=== PATIENT | male | born 1930 | race Caucasian/White ===

== ENCOUNTER 2018-10-14 15:17 | Emergency (ER) | payer MEDICARE, OTHER ==
[~2018-10-14] VITALS: Ht 172.7 cm; Wt 93.1 kg
--- NOTE | 2018-10-14 15:42 | EKG ---
[address] [address] Test Date: 2018-10-14 Test Time: 15:36:35 Pat Name: PATRICIA CHAPPELL Department: Room: Gender: M Drafting Supervisor: : [id number] Requested By: JOAO VILLALTA Order Number: [id number] Reading MD: Milan Molina Measurements Intervals [place] Rate: 88 P: 0 SC: 200 QRS: -29 QRSD: 98 T: 49 QT: 394 QTc: 480 Interpretive Statements SINUS RHYTHM LEFTWARD AXIS NONSPECIFIC ST-T WAVE CHANGES. Electronically Signed On 10-15-2018 8:49:08 [employer] by Milan Molina
--- NOTE | 2018-10-14 15:45 | PHYS DOC ---
Adult General Chief Complaint Chief Complaint: MECHANICAL FALL HPI HPI 88-year-old male presents via EMS for fall. Patient was placed box of food in his vehicle when he fell over backwards. He states he struck the back of his head on the asphalt. He is not sure if he was knocked unconscious. He doesn't think so. Patient was able to get up. Bystanders called EMS. Patient does have a hematoma on the back of his head and it was bleeding. Patient denies any pain or injuries anywhere else. He knows that he takes a medication twice a day which she thinks is for diabetes and is unsure the name. He also takes of full- strength aspirin. He denies headache, shortness of breath, chest pain, dizziness. EMS thought they might have had afib on the monitor. Review of Systems Review of Systems Constitutional: Denies fever or chills [] Eyes: Denies change in visual acuity, redness, or eye pain [] HENT: Denies nasal congestion or sore throat [] Respiratory: Denies cough or shortness of breath [] Cardiovascular: No additional information not addressed in HPI [] GI: Denies abdominal pain, nausea, vomiting, bloody stools or diarrhea [] : Denies dysuria or hematuria [] Musculoskeletal: Denies back pain or joint pain [] Integument: hematoma and laceration of scalp [] Neurologic: Denies headache, focal weakness or sensory changes [] Endocrine: Denies polyuria or polydipsia [] All other systems were reviewed and found to be within normal limits, except as documented in this note. Allergies Allergies Allergies Coded Allergies Type Severity Reaction Last Updated Verified No Known Drug Allergies 10/14/18 No Physical Exam Physical Exam Constitutional: Well developed, well nourished, no acute distress, non-toxic appearance. [] HENT: Normocephalic, atraumatic, bilateral external ears normal, oropharynx moist, no oral exudates, nose normal. [] Eyes: PERRLA, EOMI, conjunctiva normal, no discharge. [] Neck: Normal range of motion, no tenderness, supple, no stridor. [] Cardiovascular:Heart rate regular rhythm, no murmur [] Lungs & Thorax: Bilateral breath sounds clear to auscultation [] Abdomen: Bowel sounds normal, soft, no tenderness, no masses, no pulsatile masses. [] Skin: 4 cm hematoma on the posterior scalp with complex laceration in a stellate shape.[] Back: No tenderness, no CVA tenderness. [] Extremities: No tenderness, no cyanosis, no clubbing, ROM intact, no edema. [] Neurologic: Alert and oriented X 3, normal motor function, normal sensory function, no focal deficits noted. Some memory impairment.[] Psychologic: Affect normal, judgement normal, mood normal. [] EKG EKG Sinus rhythm, rate 88, left axis, no association elevations or depressions, prolonged QTC.[] Radiology/Procedures Radiology/Procedures [] Impressions: EXAM: CT Head without IV contrast CLINICAL HISTORY: FALL, LARGE LACERATION ON BACK OF HEAD COMPARISON: None TECHNIQUE: Routine CT of the head without contrast. Soft tissues and bone windows were reviewed. PQRS compliance statement - One or more of the following individualized dose reduction techniques were utilized for this study: 1. Automated exposure control 2. Adjustment of the mA and/or kV according to patient size 3. Use of iterative reconstruction technique FINDINGS: Marked subcutaneous soft tissue swelling in the high left posterior parietal region with subcutaneous gas and associated hematoma. There is no evidence of hemorrhage, mass or extra-axial fluid collection. Kraus-white differentiation is maintained with no evidence of edema. There are non-specific foci of hypodensity in the periventricular and subcortical white matter of the cerebral hemispheres. There is no mass effect or shift of the intracranial structures. The ventricles and cerebral sulci are prominent for the patients stated age consistent with generalized cerebral volume loss. The cerebellum and brainstem are unremarkable. The calvarium demonstrates no evidence of fracture or focal lesion. There is normal aeration of the visualized paranasal sinuses and mastoid air cells. The visualized portions of the orbits are normal. IMPRESSION: No evidence for acute intracranial process. Subcutaneous soft tissue swelling, hematoma and focus of gas in the high left parietal region consistent with provided history of scalp laceration. Electronically signed by: Kalia Herrera MD (10/14/2018 4:27 PM) [facility] DICTATED AND SIGNED BY: KALIA HERRERA MD DATE: 10/14/18 2319 CC: JOAO VILLALTA DO; SHEMAR KARIMI MD ~ Course & Med Decision Making Course & Med Decision Making Pertinent Labs and Imaging studies reviewed. (See chart for details) Head CT has no acute intracranial findings. He does have a soft tissue hematoma and subcutaneous air from the laceration. I was able to repair the laceration. See below for more details. The patient is acting completely appropriate. He has no other signs of intracranial complications. He would like to go home. Given the complex laceration and incompletely closure available, I will cover the patient with Keflex for 7 days. He is stable for discharge at this time. He will have his zoran taken out in 7-10 days either this facility or his primary care physician. [] Dragon Disclaimer Dragon Disclaimer This electronic medical record was generated, in whole or in part, using a voice recognition dictation system. Laceration Repair Lac Repair Indication: 8 total centimeter complex laceration of the posterior scalp. The laceration is stellate in appearance. Procedure: Verbal consent was obtained from the patient to repair his complex scalp laceration with zoran. The wound was thoroughly irrigated with saline. There were no foreign bodies found. No anesthesia was used. I was able to close the wound with 9 zoran. There was adequate skin approximation with a Y-shaped wound repair. Total repaired wound length: 8 cm. Other Items: None The patient tolerated the procedure well. Complications: None. Departure Departure: Scripts Cephalexin (KEFLEX) 500 Mg Capsule 1 CAP PO TID for laceration, #21 CAP Prov: JOAO VILLALTA DO 10/14/18 JOAO VILLALTA DO Oct 14, 2018 15:45
[2018-10-14 16:02] LABS: BASO # 0.1 x10^3/uL (0.0-0.2); BASO % 1 % (0-3); EOS # 0.2 x10^3/uL (0.0-0.7); EOS % 3 % (0-3); HEMATOCRIT 46.7 % (39.0-53.0); HEMOGLOBIN 15.7 g/dL (13.0-17.5); LYMPH # 1.5 x10^3/uL (1.0-4.8); LYMPH % 19 % (24-48); MEAN CORPUSCULAR HEMOGLOBIN 31 pg (25-35); MEAN CORPUSCULAR HGB CONC 34 g/dL (31-37); MEAN CORPUSCULAR VOLUME 93 fL (79-100); MONO # 0.6 x10^3/uL (0.0-1.1); MONO % 7 % (0-9); NEUT # 5.9 x10^3uL (1.8-7.7); NEUT % 70 % (31-73); PLATELET COUNT 249 x10^3/uL (140-400); RED BLOOD COUNT 5.02 x10^6/uL (4.30-5.70); RED CELL DISTRIBUTION WIDTH 14.4 % (11.5-14.5); WHITE BLOOD COUNT 8.4 x10^3/uL (4.0-11.0)
[2018-10-14 16:17] LABS: ALBUMIN 3.6 g/dL (3.4-5.0); ALBUMIN/GLOBULIN RATIO 0.9 (1.0-1.7); CALCIUM 9.4 mg/dL (8.5-10.1); CREATININE 1.1 mg/dL (0.7-1.3); GFR 63.3; POTASSIUM 4.2 mmol/L (3.5-5.1); TOTAL BILIRUBIN 0.6 mg/dL (0.2-1.0); TOTAL PROTEIN 7.4 g/dL (6.4-8.2)
--- NOTE | 2018-10-14 16:31 | RAD ---
EXAM: CT Head without IV contrast CLINICAL HISTORY: FALL, LARGE LACERATION ON BACK OF HEAD COMPARISON: None TECHNIQUE: Routine CT of the head without contrast. Soft tissues and bone windows were reviewed. PQRS compliance statement - One or more of the following individualized dose reduction techniques were utilized for this study: 1. Automated exposure control 2. Adjustment of the mA and/or kV according to patient size 3. Use of iterative reconstruction technique FINDINGS: Marked subcutaneous soft tissue swelling in the high left posterior parietal region with subcutaneous gas and associated hematoma. There is no evidence of hemorrhage, mass or extra-axial fluid collection. Kraus-white differentiation is maintained with no evidence of edema. There are non-specific foci of hypodensity in the periventricular and subcortical white matter of the cerebral hemispheres. There is no mass effect or shift of the intracranial structures. The ventricles and cerebral sulci are prominent for the patients stated age consistent with generalized cerebral volume loss. The cerebellum and brainstem are unremarkable. The calvarium demonstrates no evidence of fracture or focal lesion. There is normal aeration of the visualized paranasal sinuses and mastoid air cells. The visualized portions of the orbits are normal. IMPRESSION: No evidence for acute intracranial process. Subcutaneous soft tissue swelling, hematoma and focus of gas in the high left parietal region consistent with provided history of scalp laceration. Electronically signed by: Kalia Hardin MD (10/14/2018 4:27 PM) [facility]
[2018-10-14] MEDS ORDERED: CEPH-264 PO (16:45)
[2018-10-14 17:28] VITALS: BP 168/78
== END 2018-10-14 17:29 | disposition home or self-care (01) ==
LOC: ER 15:17
DX: S01.01XA Laceration without foreign body of scalp, initial encounter (principal); W18.09XA Striking against other object with subsequent fall, initial encounter; Y93.89 Activity, other specified; Y92.89 Other specified places as the place of occurrence of the external cause; Y99.8 Other external cause status
CPT/HCPCS: 12004; 36415; 70450; 80053; 85025; 93005; 99284

== ENCOUNTER 2018-10-23 11:45 | Emergency (ER) | payer MEDICARE, OTHER ==
[~2018-10-23] VITALS: Ht 180.3 cm; Wt 81.6 kg
[~2018-10-23 11:45] MED LIST: CEPH-264 PO
--- NOTE | 2018-10-23 11:57 | PHYS DOC ---
Past History Past Medical History: Diabetes Past Surgical History: No Surgical History Alcohol Use: None Drug Use: None Adult General HPI HPI Patient is an 88-year-old male who presents to the emergency department for evaluation. About 10 days ago, he fell and sustained a scalp laceration posteriorly, and had 9 zoran placed in his scalp. He presents for staple removal. He has not had any headaches or vision changes. He states that since the fall he has felt slightly dizzy upon standing quickly, but has otherwise not had any significant symptoms. He denies any neck pain, numbness, weakness, or vision changes, or significant confusion. He has no other complaints at this time. CT scan done on the day of his injury was negative for acute intracranial abnormality. Review of Systems Review of Systems Constitutional: Denies fever or chills [] Eyes: Denies change in visual acuity, redness, or eye pain [] HENT: Denies nasal congestion or sore throat [] Respiratory: Denies cough or shortness of breath [] Cardiovascular: The patient denies any shortness of breath, chest pain, palpitations, or orthopnea [] GI: Denies abdominal pain, nausea, vomiting, bloody stools or diarrhea [] : Denies dysuria or hematuria [] Musculoskeletal: Denies back pain or joint pain [] Integument: Denies rash or skin lesions [] Neurologic: Denies headache, focal weakness or sensory changes [] Endocrine: Denies polyuria or polydipsia [] All other systems were reviewed and found to be within normal limits, except as documented in this note. Allergies Allergies Allergies Coded Allergies Type Severity Reaction Last Updated Verified No Known Drug Allergies 10/14/18 No Physical Exam Physical Exam PHYSICAL EXAM: CONSTITUTIONAL: Well developed, well nourished HEAD: normocephalic, there is a healing scalp wound on the posterior/superior scalp, with [address] EENT: PERRL, EOMI. Conjunctivae normal color, sclerae non-icteric; moist mucous membranes. NECK: Supple, non-tender; no meningismus.There is full, painless range of motion of the cervical spine, without any focal bony midline tenderness to palpation. LUNGS: Lungs CTA, breathing even and unlabored. Normal air movement. HEART: Regular rate and rhythm, no murmur CHEST: No deformity; non-tender ABDOMEN: The abdomen is soft, and non-tender, no masses or bruits. EXTREM: Normal ROM; no deformity, no calf tenderness. Normal pulses palpable in all extremities. There is no pedal edema. SKIN: No rash; no diaphoresis NEURO: Alert; normal speech and cognition; CN's grossly intact; strength grossly intact without focal deficit. the patient ambulates with a steady gait. BACK: No CVA TTP. EKG EKG [] Radiology/Procedures Radiology/Procedures [] Course & Med Decision Making Course & Med Decision Making Zoran were removed by nursing staff. I discussed wound care with the patient does need for follow-up and return precautions. Dragon Disclaimer Dragon Disclaimer This electronic medical record was generated, in whole or in part, using a voice recognition dictation system. Departure Departure: Impression: Primary Impression: Removal of zoran Disposition: 01 HOME, SELF-CARE Condition: STABLE Referrals: SHEMAR KARIMI MD (PCP) Patient Instructions: Dizziness, Staple Removal, Care After KEE SLAUGHTER MD Oct 23, 2018 11:57
[2018-10-23 12:27] VITALS: BP 162/63
== END 2018-10-23 12:15 | disposition home or self-care (01) ==
LOC: ER 11:45
DX: S01.01XD Laceration without foreign body of scalp, subsequent encounter (principal); E11.9 Type 2 diabetes mellitus without complications; X58.XXXD Exposure to other specified factors, subsequent encounter
CPT/HCPCS: 99283